=== PATIENT | female | born 1950 | race Caucasian/White ===

== ENCOUNTER → 2022-02-02 10:14 | Outpatient (CLI) | payer MEDICARE, SELFPAY ==
--- NOTE | ~2022-02-02 | CT_ITS ---
EXAMINATION: CT abdomen wo con DATE: 02/02/2022 10:31 INDICATION: Right upper quadrant bulge TECHNIQUE: Computed tomography (CT) of the abdomen was performed without intravenous contrast. Automa rodrick exposure control and iterative reconstruction technique were employed. Exam dose: 223.80 mGy-cm total exam DLP. COMPARISON: None. FINDINGS: The lung bases are clear of infiltrate or consolidation. Normal heart size. No pericardial or pleural effusion. The liver, gallbladder, spleen, pancreas, adrenal glands and kidneys are unremarkable on this limited noncontrast examination. No renal calcification or urinary tract calculus is evident. There is atherosclerotic calcification of the abdominal aorta and right iliac artery calcification. N o intraperitoneal or retroperitoneal mass lesion or adenopathy. There is a prominent amount of fecal material within the colon but no evidence of bowel obstruction. No abdominal wall hernia is detected. Very slight fat-containing umbilical hernia. Prominent degenerative change at the apophyseal joints especially at L4-5, with associated grade 1 an terolisthesis at this level. There is moderate degenerative disc disease of the lumbar spine and dege nerative spurring of the lower thoracic spine. No suspicious osteolytic or osteoblastic lesions are n oted. IMPRESSION: Very small fat-containing umbilical hernia. Otherwise no abdominal wall hernias noted Reviewed, dictated and finalized at [facility]. Reviewed, dictated and finalized at [facility].
== END ==
PROVIDERS: PCP Pediatrics; Visit Provider Surgery
DX: R19.01 Right upper quadrant abdominal swelling, mass and lump (principal); M47.816 Spondylosis without myelopathy or radiculopathy, lumbar region; K42.9 Umbilical hernia without obstruction or gangrene
CPT/HCPCS: 74150